=== PATIENT | female | born 1995 | race African-American/Black ===

== ENCOUNTER 2020-11-17 08:16 | Emergency (ER) | payer BC ==
[2020-11-17] MEDS ORDERED: Dexamethasone 4 MG TAB ONE (09:10)
[2020-11-17] MEDS ORDERED: Bicillin LA 1.2 MILLION UNITS/2 ML SYRINGE ONE (09:34)
== END 2020-11-17 09:43 | disposition home or self-care (01) ==
LOC: ERS 08:16
DX: J02.0 Streptococcal pharyngitis (principal)
CPT/HCPCS: 71045; 87430; 93005; 96372; J0561; J8540

== ENCOUNTER 2021-12-11 07:57 | Emergency (ER) | payer OTHER ==
[2021-12-11] MEDS ORDERED: Dexamethasone 10 MG/ML VIAL ONE (09:23)
== END 2021-12-11 10:28 | disposition home or self-care (01) ==
LOC: ERS 07:57
DX: J02.9 Acute pharyngitis, unspecified (principal); J45.909 Unspecified asthma, uncomplicated
CPT/HCPCS: 87081; 87430; 99284; J1100

== ENCOUNTER 2022-10-08 21:51 | Emergency (ER) | payer OTHER ==
[2022-10-08] MEDS ORDERED: Proparacaine 0.5% Opth 15 ML BOT ONE ×2 (22:44→23:16)
[2022-10-08] MEDS ORDERED: Ketorolac Tromethamine 30 MG/ML VIAL ONE (22:44)
== END 2022-10-09 01:18 | disposition home or self-care (01) ==
LOC: ERS 21:51
DX: S05.11XA Contusion of eyeball and orbital tissues, right eye, initial encounter (principal); H20.9 Unspecified iridocyclitis; X58.XXXA Exposure to other specified factors, initial encounter
CPT/HCPCS: 70480; 96372; J1885